=== PATIENT | female | born 1970 | race Caucasian/White ===

== ENCOUNTER → 2017-08-04 | Outpatient (CLI) | payer OTHER ==
[~2017-08-04] MED LIST: ALBENZA200 MG PO; COLACE100 MG PO; DIFLUCAN150 MG PO; GAS-X180 MG PO; LIPITOR 20 MG T20 M1 PO; MACROBID 100 M100 M1 PO; MIRALAX17 GM PO; TRAMADOL 50 MG50 MG PO; ZOFRAN4 MG PO
== END ==
LOC: M.RAD 10:20
DX: Z12.31 Encounter for screening mammogram for malignant neoplasm of breast (principal)

== ENCOUNTER 2018-01-09 15:43 | Emergency (ER) | payer OTHER ==
[~2018-01-09] VITALS: Ht 165.1 cm; Wt 82.2 kg
[2018-01-09] MEDS ORDERED: LIPITOR 20 MG T20 M1 PO (15:55)
[2018-01-09 16:04] LABS: ABSOLUTE EOSINOPHILS 0.1 thou/uL (0.0-0.7); ABSOLUTE LYMPHOCYTES 2.1 thou/uL (0.8-5.3); ABSOLUTE MONOCYTES 0.7 thou/uL (0.0-1.2); ABSOLUTE NEUTROPHILS 5.4 thou/uL (1.6-8.1); BASOPHILS 0.6 %; EOSINOPHILS 1.6 %; HEMATOCRIT 49.4 % (37.0-47.0); LYMPHOCYTES 24.9 %; MCH 32.7 pg (26.0-34.0); MCHC 34.3 g/dL (28.0-37.0); MCV 95.1 fL (80.0-100.0); MONOCYTES 8.1 %; MPV 9.1 fl. (7.2-11.1); NUCLEATED RBCS 0 /100WBC; PLATELET COUNT* 219 thou/uL (150-400); POLYS 64.8 %; RBC 5.19 mil/uL (4.20-5.00); RDW-CV 13.7 % (10.5-14.5); WBC 8.3 thou/uL (4.0-11.0)
[2018-01-09 16:05] LABS: URINE BILIRUBIN NEGATIVE (Negative); URINE BLOOD NEGATIVE (Negative); URINE CLARITY SL CLOUDY; URINE COLOR YELLOW; URINE GLUCOSE-RANDOM NEGATIVE (Negative); URINE KETONES NEGATIVE (Negative); URINE LEUKOCYTES-REFLEX NEGATIVE (Negative); URINE PROTEIN NEGATIVE (Negative); URINE UROBILINOGEN 0.2 E.U./dl (0.2-1.0)
[2018-01-09 16:06] LABS: URINE NITRITE-REFLEX POSITIVE (Negative)
[2018-01-09 16:13] LABS: BACTERIA-REFLEX >30 Many /HPF (None Seen); CRYSTALS None Seen /LPF (None Seen); MUCUS 0-3 Light strn/LPF (None Seen); SQUAMOUS >10 Many /LPF (0-3); URINE RBC None Seen /HPF (0-2); URINE WBC-REFLEX 0-5 Rare /HPF (0-5)
[2018-01-09 16:14] LABS: CASTS None Seen /LPF (None Seen)
[2018-01-09 16:15] LABS: CALCIUM 8.7 mg/dL (8.5-10.1); CREATININE 0.9 mg/dL (0.6-1.3); POTASSIUM 3.8 mmol/L (3.5-5.1)
[2018-01-09 16:20] LABS: ALBUMIN 3.7 g/dL (3.4-5.0); TOTAL BILIRUBIN 0.4 mg/dL (<0.1-1.0); TOTAL PROTEIN 7.3 g/dL (6.4-8.2)
[2018-01-09] MEDS ORDERED: ZOFRAN4 MG PO (17:19)
[2018-01-09] MEDS ORDERED: TRAMADOL 50 MG50 MG PO (17:19)
[2018-01-09 17:41] VITALS: BP 117/66
== END 2018-01-09 17:42 | disposition home or self-care (01) ==
LOC: M.ERS 15:43
PROVIDERS: Nurse Practitioner Psychiatric/Mental Health
DX: R10.84 Generalized abdominal pain (principal); R11.2 Nausea with vomiting, unspecified; F17.210 Nicotine dependence, cigarettes, uncomplicated; Z90.710 Acquired absence of both cervix and uterus; Z90.721 Acquired absence of ovaries, unilateral

== ENCOUNTER 2018-01-13 15:07 | Emergency (ER) | payer OTHER ==
[~2018-01-13] VITALS: Ht 165.1 cm; Wt 80.7 kg
[~2018-01-13 15:07] MED LIST changes: -ALBENZA200 MG PO; -COLACE100 MG PO; -DIFLUCAN150 MG PO; -GAS-X180 MG PO; -MACROBID 100 M100 M1 PO; -MIRALAX17 GM PO
[2018-01-13] MEDS ORDERED: GAS-X180 MG PO (15:17)
[2018-01-13] MEDS ORDERED: COLACE100 MG PO (15:17)
[2018-01-13] MEDS ORDERED: MIRALAX17 GM PO (15:17)
[2018-01-13 15:34] LABS: ABSOLUTE BASOPHILS 0.1 thou/uL (0.0-0.2); ABSOLUTE EOSINOPHILS 0.1 thou/uL (0.0-0.7); ABSOLUTE LYMPHOCYTES 1.9 thou/uL (0.8-5.3); ABSOLUTE NEUTROPHILS 8.3 thou/uL (1.6-8.1); BASOPHILS 0.8 %; EOSINOPHILS 0.5 %; LYMPHOCYTES 16.7 %; MCHC 34.1 g/dL (28.0-37.0); MCV 94.1 fL (80.0-100.0); MONOCYTES 8.5 %; MPV 9.4 fl. (7.2-11.1); NUCLEATED RBCS 0 /100WBC; PLATELET COUNT* 229 thou/uL (150-400); POLYS 73.5 %; RBC 5.32 mil/uL (4.20-5.00); RDW-CV 13.4 % (10.5-14.5); WBC 11.3 thou/uL (4.0-11.0)
[2018-01-13 15:44] LABS: CREATININE 0.9 mg/dL (0.6-1.3); POTASSIUM 3.8 mmol/L (3.5-5.1)
[2018-01-13 15:48] LABS: ALBUMIN 3.9 g/dL (3.4-5.0); TOTAL BILIRUBIN 0.4 mg/dL (<0.1-1.0); TOTAL PROTEIN 7.7 g/dL (6.4-8.2)
[2018-01-13 16:00] LABS: URINE BLOOD NEGATIVE (Negative); URINE CLARITY CLOUDY; URINE COLOR YELLOW; URINE GLUCOSE-RANDOM NEGATIVE (Negative); URINE KETONES TRACE (Negative); URINE LEUKOCYTES-REFLEX NEGATIVE (Negative); URINE PROTEIN TRACE (Negative); URINE SPECIFIC GRAVITY >= 1.030 (1.005-1.030); URINE UROBILINOGEN 0.2 E.U./dl (0.2-1.0)
[2018-01-13 16:03] LABS: URINE BILIRUBIN 1+ (Negative); URINE NITRITE-REFLEX POSITIVE (Negative)
[2018-01-13 16:05] LABS: ICTOTEST (BILI CONFIRMATORY) Negative (Negative)
[2018-01-13 16:11] LABS: SQUAMOUS >10 Many /LPF (0-3); URINE WBC-REFLEX 0-5 Rare /HPF (0-5)
[2018-01-13 16:12] LABS: BACTERIA-REFLEX >30 Many /HPF (None Seen); CALCIUM OXALATE 4-10 Moderate /LPF (None Seen); CASTS None Seen /LPF (None Seen); URINE RBC 0-2 Rare /HPF (0-2)
[2018-01-13] MEDS ORDERED: MACROBID 100 M100 M1 PO (16:16)
[2018-01-13] MEDS ORDERED: ALBENZA200 MG PO (16:16)
[2018-01-13] MEDS ORDERED: DIFLUCAN150 MG PO (16:28)
[2018-01-13 16:31] VITALS: BP 126/59
== END 2018-01-13 16:33 | disposition home or self-care (01) ==
LOC: M.ERS 15:07
PROVIDERS: Nurse Practitioner Family
DX: N39.0 Urinary tract infection, site not specified (principal); B80 Enterobiasis; R14.0 Abdominal distension (gaseous); E78.5 Hyperlipidemia, unspecified; F17.210 Nicotine dependence, cigarettes, uncomplicated; Z90.710 Acquired absence of both cervix and uterus; Z90.721 Acquired absence of ovaries, unilateral

== ENCOUNTER 2019-07-15 01:23 | Emergency (ER) | payer OTHER ==
[~2019-07-15] VITALS: Ht 165.1 cm; Wt 81.6 kg
[~2019-07-15 01:23] MED LIST changes: +ALBENZA200 MG PO; +COLACE100 MG PO; +DIFLUCAN150 MG PO; +GAS-X180 MG PO; +MACROBID 100 M100 M1 PO; +MIRALAX17 GM PO
[2019-07-15] MEDS ORDERED: VENTOLIN HFA 1818 GM INH (01:35)
[2019-07-15 01:47] LABS: URINE BILIRUBIN NEGATIVE (Negative); URINE BLOOD NEGATIVE (Negative); URINE CLARITY CLEAR; URINE COLOR YELLOW; URINE GLUCOSE-RANDOM NEGATIVE (Negative); URINE KETONES NEGATIVE (Negative); URINE LEUKOCYTES-REFLEX NEGATIVE (Negative); URINE NITRITE-REFLEX NEGATIVE (Negative); URINE PROTEIN NEGATIVE (Negative); URINE UROBILINOGEN 0.2 E.U./dl (0.2-1.0)
[2019-07-15 02:06] LABS: ABSOLUTE BASOPHILS 0.1 thou/uL (0.0-0.2); ABSOLUTE EOSINOPHILS 0.2 thou/uL (0.0-0.7); ABSOLUTE LYMPHOCYTES 1.7 thou/uL (0.8-5.3); ABSOLUTE MONOCYTES 0.9 thou/uL (0.0-1.2); ABSOLUTE NEUTROPHILS 5.9 thou/uL (1.6-8.1); BASOPHILS 0.8 %; EOSINOPHILS 1.9 %; HEMATOCRIT 45.9 % (37.0-47.0); HEMOGLOBIN 15.9 gm/dL (12.0-15.0); LYMPHOCYTES 19.5 %; MCH 32.4 pg (26.0-34.0); MCHC 34.7 g/dL (28.0-37.0); MCV 93.5 fL (80.0-100.0); MONOCYTES 10.4 %; NUCLEATED RBCS 0 /100WBC; PLATELET COUNT* 205 thou/uL (150-400); POLYS 67.4 %; RBC 4.91 mil/uL (4.20-5.00); RDW-CV 13.4 % (10.5-14.5); WBC 8.8 thou/uL (4.0-11.0)
[2019-07-15 02:09] LABS: CALCIUM 8.5 mg/dL (8.5-10.1); CREATININE 0.9 mg/dL (0.6-1.3); POTASSIUM 4.3 mmol/L (3.5-5.1)
[2019-07-15] MEDS ORDERED: HYDROCODON-ACE1 EAC8 PO (04:15)
[2019-07-15 05:01] VITALS: BP 126/71
== END 2019-07-15 05:01 | disposition home or self-care (01) ==
LOC: M.ERS 01:23
PROVIDERS: Emergency Medicine
DX: R10.32 Left lower quadrant pain (principal); F17.210 Nicotine dependence, cigarettes, uncomplicated; Z90.710 Acquired absence of both cervix and uterus

== ENCOUNTER → 2020-02-24 | Outpatient (CLI) | payer BC ==
[~2020-02-24] MED LIST changes: +HYDROCODON-ACE1 EAC8 PO; +VENTOLIN HFA 1818 GM INH
== END ==
LOC: M.RAD 11:24
PROVIDERS: ATTEND Family Medicine
DX: Z12.31 Encounter for screening mammogram for malignant neoplasm of breast (principal)

== ENCOUNTER 2020-05-27 17:10 | Emergency (ER) | payer BC ==
[~2020-05-27] VITALS: Ht 167.6 cm; Wt 86.2 kg
[2020-05-27 17:41] LABS: ABSOLUTE BASOPHILS 0.1 thou/uL (0.0-0.2); ABSOLUTE EOSINOPHILS 0.1 thou/uL (0.0-0.7); ABSOLUTE LYMPHOCYTES 2.7 thou/uL (0.8-5.3); ABSOLUTE NEUTROPHILS 8.8 thou/uL (1.6-8.1); BASOPHILS 1.2 %; EOSINOPHILS 0.8 %; HEMATOCRIT 52.8 % (37.0-47.0); HEMOGLOBIN 18.1 gm/dL (12.0-15.0); LYMPHOCYTES 21.3 %; MCH 32.1 pg (26.0-34.0); MCHC 34.2 g/dL (28.0-37.0); MCV 93.8 fL (80.0-100.0); MONOCYTES 7.5 %; MPV 8.7 fl. (7.2-11.1); NUCLEATED RBCS 0 /100WBC; PLATELET COUNT* 286 thou/uL (150-400); POLYS 69.2 %; RBC 5.63 mil/uL (4.20-5.00); RDW-CV 13.2 % (10.5-14.5); WBC 12.7 thou/uL (4.0-11.0)
[2020-05-27 17:43] LABS: CALCIUM 9.8 mg/dL (8.5-10.1); CREATININE 1.1 mg/dL (0.6-1.3); POTASSIUM 3.9 mmol/L (3.5-5.1)
[2020-05-27 17:44] LABS: APTT 27.1 Seconds (25.0-31.3); INR 0.9; PROTIME 10.1 Seconds (9.20-11.50)
[2020-05-27 17:54] LABS: ALBUMIN 3.8 g/dL (3.4-5.0); TOTAL BILIRUBIN 0.4 mg/dL (<0.1-1.0); TOTAL PROTEIN 7.7 g/dL (6.4-8.2)
[2020-05-27 18:04] LABS: URINE BILIRUBIN NEGATIVE (Negative); URINE BLOOD NEGATIVE (Negative); URINE CLARITY CLEAR; URINE COLOR YELLOW; URINE GLUCOSE-RANDOM NEGATIVE (Negative); URINE KETONES NEGATIVE (Negative); URINE LEUKOCYTES-REFLEX NEGATIVE (Negative); URINE NITRITE-REFLEX NEGATIVE (Negative); URINE PROTEIN NEGATIVE (Negative); URINE SPECIFIC GRAVITY <= 1.005 (1.005-1.030); URINE UROBILINOGEN 0.2 E.U./dl (0.2-1.0)
[2020-05-27 18:15] LABS: AMP/METHAMP Negative (Negative); BARBITURATES Negative (Negative); BENZODIAZEPINES Negative (Negative); COCAINE Negative (Negative); METHADONE Negative (Negative); OPIATES Negative (Negative); PCP Negative (Negative); THC POSITIVE (Negative)
[2020-05-27] MEDS ORDERED: PREDNISONE 10 M10 MG PO (20:40)
[2020-05-27 20:56] VITALS: BP 124/66
--- NOTE | 2020-05-28 12:44 | EKG ---
[place] [address] ELECTROCARDIOGRAM REPORT Name: SHAUN MCMAHAN Room: [facility]#: [id number] Admission: 05/27/20 Attend Phys: Discharge: 05/27/20 Date of : 74 Date of Service: 05/27/20 1716 Report #: [id number] THIS REPORT FOR: //name// [facility] ED Test Date: 2020-05-27 Test Time: 17:16:22 Pat Name: SHAUN MCMAHAN Department: Room: Gender: Family Centered Specialist: [place] : 1970 Requested By: Keerthi Giang Order Number: [id number] MD: Srinivasan Marquez Measurements Intervals [place] Rate: 130 P: 79 MA: 139 QRS: 76 QRSD: 70 T: 31 QT: 283 QTc: 416 Interpretive Statements Sinus tachycardia No previous ECG available for comparison Electronically Signed On 05-28-2020 12:44:08 ONLINE [employer]IA [employer] by Srinivasan Marquez [email or web address] <ELECTRONICALLY SIGNED> By: Srinivasan Marquez MD, [facility] 05/28/20 1244 1715 15 Srinivasan Marquez MD, FACC /EPI
== END 2020-05-27 20:56 | disposition home or self-care (01) ==
LOC: M.ERS 17:10
PROVIDERS: Physician Assistant
DX: B34.9 Viral infection, unspecified (principal); R00.2 Palpitations; Z20.828 Contact with and (suspected) exposure to other viral communicable diseases; F17.210 Nicotine dependence, cigarettes, uncomplicated; Z90.710 Acquired absence of both cervix and uterus; Z90.721 Acquired absence of ovaries, unilateral; Z79.899 Other long term (current) drug therapy